=== PATIENT | male | born 1965 | race Caucasian/White ===

== ENCOUNTER 2017-09-25 00:45 | Inpatient (IN) | payer MEDICARE, OTHER ==
[2017-09-25 01:12] LABS: ADD MAN DIFF? NO
[2017-09-25 01:14] LABS: ABNORMAL IP MESSAGE 1; BASOPHILS % 0.3 % (0.0-2.0); EOSINOPHILS # 0.3 10^3/ul (0.0-0.5); EOSINOPHILS % 2.5 % (0.0-7.0); HEMATOCRIT 36.9 % (42.0-52.0); HEMOGLOBIN 11.3 g/dl (14.0-18.0); LYMPHOCYTES # 0.5 10^3/ul (0.8-2.9); LYMPHOCYTES % 3.8 % (15.0-51.0); MEAN CORPUSCULAR HEMOGLOBIN 32.8 pg (29.0-33.0); MEAN CORPUSCULAR HGB CONC 30.6 g/dl (32.0-37.0); MEAN CORPUSCULAR VOLUME 107.3 fl (82.0-101.0); MEAN PLATELET VOLUME 10.7 fl (7.4-10.4); MONOCYTE # 1.2 10^3/ul (0.3-0.9); NEUTROPHIL # 9.8 10^3/ul (1.6-7.5); NEUTROPHILS % 82.7 % (39.0-77.0); NUCLEATED RED BLOOD CELLS% 0.2 /100WBC (0.0-0.0); PLATELET COUNT 232 10^3/UL (140-415); POSITIVE DIFF @See below; RED BLOOD COUNT 3.44 10^6/ul (4.70-6.10); RED CELL DISTRIBUTION WIDTH 13.8 % (11.5-14.5)
[2017-09-25 01:14] LABS: WHITE BLOOD COUNT 11.8 10^3/ul (4.8-10.8)
[2017-09-25] MEDS: METHYLPREDNISOLONE 125 MG INJ IV ×2 (01:28→09:37)
[2017-09-25 01:31] LABS: ALANINE AMINOTRANSFERASE 25 IU/L (13-69); ALBUMIN 3.8 g/dl (3.3-4.9); ALBUMIN/GLOBULIN RATIO 1.02; ALKALINE PHOSPHATASE 68 IU/L (42-121); ASPARTATE AMINO TRANSFERASE 30 IU/L (15-46); BILIRUBIN,INDIRECT 0.5 mg/dl (0-1.1); BILIRUBIN,TOTAL 0.5 mg/dl (0.2-1.3); BLOOD UREA NITROGEN 22 mg/dl (7-20); CALCIUM 8.8 mg/dl (8.4-10.2); CHLORIDE 94 mmol/L (97-110); CREATININE 0.93 mg/dl (0.61-1.24); GLUCOSE 275 mg/dl (70-220); POTASSIUM 4.6 mmol/L (3.5-5.1); SODIUM 140 mmol/L (135-144); TOTAL PROTEIN 7.5 g/dl (6.1-8.1)
[2017-09-25 01:32] LABS: LACTIC ACID 1.5 mmol/L (0.5-2.0)
[2017-09-25] MEDS: IPRATROPIUM (NEB) 0.5 MG/2.5 ML AMP INH (01:32)
[2017-09-25] MEDS: LEVALBUTEROL (NEB) 1.25 MG/0.5 ML AMP INH (01:32)
[2017-09-25 01:33] LABS: INR 0.98; PARTIAL THROMBOPLASTIN TIME 27.5 Sec (25.0-35.0); PROTIME 13.1 Sec (11.9-14.9)
[2017-09-25 01:37] LABS: ANION GAP 11 (8-16)
[2017-09-25 01:41] LABS: CARBON DIOXIDE 40 mmol/L (21-31)
[2017-09-25 01:42] LABS: TROPONIN-I 0.031 ng/ml (0.000-0.120)
[2017-09-25] MEDS: SOD CHLORIDE 0.9% IV (03:13)
[2017-09-25 03:23] LABS: AADO2 Arterial 314.7 mmHg (7.0-24.0); Allen Test ACCEPTAB; Arterial Base Excess 12.3 mmol/L (-3.0-3); Arterial Blood Gas Oxygen Sat 93.8 mmHG (95.0-98.0); Arterial COHb 0.5 % (0.0-3.0); Arterial Fraction of Oxyhgb 93.1 % (93.0-99.0); Arterial HCO3 43.1 mmol/L (22.0-26.0); Arterial MetHb 0.2 % (0.0-1.5); Arterial Total Hemglobin 12.5 g/dl (12.0-18.0); Arterial pCO2 96.9 mmhg (35-45); Blood Gas IEPAP 18/8; Blood Gas PS 10; MODE MASK - BIPAP
[2017-09-25] MEDS: CEFEPIME 1GM/50 ML (PMX) 50 ML IVPB (03:24)
[2017-09-25] MEDS: VANCOMYCIN 1 GM (PMX) 250 ML IVPB (03:24)
[2017-09-25 03:44] LABS: LACTIC ACID 0.7 mmol/L (0.5-2.0)
[2017-09-25] MEDS ORDERED: ONDANSETRON 4 MG INJ IV (06:00)
[2017-09-25] MEDS ORDERED: IPRATROPIUM (NEB) 0.5 MG/2.5 ML AMP NEB (06:00)
[2017-09-25 06:08] LABS: LACTIC ACID 0.6 mmol/L (0.5-2.0)
[2017-09-25] MEDS ORDERED: DEXTROSE 50% 50 ML SYRINGE IV ×2 (07:30)
[2017-09-25] MEDS ORDERED: GLUCOSE GEL 15 GRAM TUBE PO ×2 (07:30)
[2017-09-25] MEDS ORDERED: GLUCAGON 1 MG INJ IM (07:30)
[2017-09-25] MEDS ORDERED: GLUCOSE GEL 15 GRAM TUBE BUCCAL (07:30)
[2017-09-25] MEDS: CEFTRIAXONE 1 GM/50 ML (PMX) 50 ML IVPB ×2 (08:03→20:27)
[2017-09-25 08:23] LABS: AADO2 Arterial 361.6 mmHg (7.0-24.0); Arterial Base Excess 7.5 mmol/L (-3.0-3); Arterial Blood Gas Oxygen Sat 95.6 mmHG (95.0-98.0); Arterial COHb 0.7 % (0.0-3.0); Arterial Fraction of Oxyhgb 94.9 % (93.0-99.0); Arterial HCO3 39.4 mmol/L (22.0-26.0); Arterial MetHb 0 % (0.0-1.5); Arterial Total Hemglobin 12.8 g/dl (12.0-18.0); Arterial pCO2 105.8 mmhg (35-45); Blood Gas IEPAP 18/8; Blood Gas PS 10; MODE MASK - BIPAP; Site Right Brachial
[2017-09-25] MEDS: FUROSEMIDE 40 MG INJ IV (09:37)
[2017-09-25] MEDS: INSULIN ASPART [NOVOLOG] 3 ML PEN SC ×4 (09:44→20:36)
[2017-09-25] MEDS: INSULIN DETEMIR [LEVEMIR] (100 UNITS/ML) SYG SC (09:44)
[2017-09-25] MEDS: HEPARIN 5,000 UNIT/0.5 ML VIAL SC ×2 (09:45→20:30)
[2017-09-25] MEDS: AZITHROMYCIN 500MG/NS (PMX) 250 ML IVPB (10:25)
[2017-09-25 10:45] LABS: AADO2 Arterial 402.9 mmHg (7.0-24.0); Arterial Base Excess 8.5 mmol/L (-3.0-3); Arterial Blood Gas Oxygen Sat 92.8 mmHG (95.0-98.0); Arterial COHb 0.4 % (0.0-3.0); Arterial Fraction of Oxyhgb 92.3 % (93.0-99.0); Arterial HCO3 38.8 mmol/L (22.0-26.0); Arterial MetHb 0.1 % (0.0-1.5); Arterial Total Hemglobin 12.5 g/dl (12.0-18.0); Arterial pCO2 89.2 mmhg (35-45); Blood Gas IEPAP 24/8; Blood Gas PS 16; MODE MASK - BIPAP; Site Right Brachial
[2017-09-26] MEDS: INSULIN ASPART [NOVOLOG] 3 ML PEN SC ×6 (01:00→21:48)
[2017-09-26] MEDS ORDERED: ACCU-CHEK XX (02:00)
[2017-09-26] MEDS: FUROSEMIDE 40 MG INJ IV (05:45)
[2017-09-26 08:58] LABS: AADO2 Arterial 178.7 mmHg (7.0-24.0); Allen Test ACCEPTAB; Arterial Base Excess 15.5 mmol/L (-3.0-3); Arterial Blood Gas Oxygen Sat 95.4 mmHG (95.0-98.0); Arterial COHb 0.2 % (0.0-3.0); Arterial Fraction of Oxyhgb 95.1 % (93.0-99.0); Arterial HCO3 44.9 mmol/L (22.0-26.0); Arterial MetHb 0.1 % (0.0-1.5); Arterial pCO2 85.2 mmhg (35-45); Blood Gas IEPAP 16; Blood Gas PS 24/8; MODE MASK - BIPAP; Site Right Radial
[2017-09-26] MEDS: CEFTRIAXONE 1 GM/50 ML (PMX) 50 ML IVPB ×2 (09:42→21:46)
[2017-09-26] MEDS: HEPARIN 5,000 UNIT/0.5 ML VIAL SC ×2 (09:43→21:47)
[2017-09-26] MEDS: INSULIN DETEMIR [LEVEMIR] (100 UNITS/ML) SYG SC (09:52)
[2017-09-26] MEDS: AZITHROMYCIN 500MG/NS (PMX) 250 ML IVPB (11:06)
[2017-09-26] MEDS: METHYLPREDNISOLONE 125 MG INJ IV ×2 (12:41→18:11)
[2017-09-26] MEDS: DEXTROSE 5%-0.45% NACL 1,000 ML IV (13:42)
[2017-09-27] MEDS: INSULIN ASPART [NOVOLOG] 3 ML PEN SC ×6 (01:41→21:09)
[2017-09-27 05:25] LABS: ADD MAN DIFF? NO
[2017-09-27 05:32] LABS: ABNORMAL IP MESSAGE 1; BASOPHILS % 0.1 % (0.0-2.0); HEMATOCRIT 33.4 % (42.0-52.0); HEMOGLOBIN 10.5 g/dl (14.0-18.0); LYMPHOCYTES # 0.2 10^3/ul (0.8-2.9); LYMPHOCYTES % 1.2 % (15.0-51.0); MEAN CORPUSCULAR HEMOGLOBIN 33.3 pg (29.0-33.0); MEAN CORPUSCULAR HGB CONC 31.4 g/dl (32.0-37.0); MEAN PLATELET VOLUME 11.5 fl (7.4-10.4); MONOCYTE # 0.2 10^3/ul (0.3-0.9); MONOCYTES % 1.7 % (0.0-11.0); NEUTROPHIL # 12.9 10^3/ul (1.6-7.5); NEUTROPHILS % 96.4 % (39.0-77.0); PLATELET COUNT 259 10^3/UL (140-415); POSITIVE DIFF @See below; RED BLOOD COUNT 3.15 10^6/ul (4.70-6.10); RED CELL DISTRIBUTION WIDTH 14.6 % (11.5-14.5)
[2017-09-27 05:32] LABS: WHITE BLOOD COUNT 13.4 10^3/ul (4.8-10.8)
[2017-09-27] MEDS: METHYLPREDNISOLONE 125 MG INJ IV ×4 (06:10→17:37)
[2017-09-27] MEDS: FUROSEMIDE 40 MG INJ IV (06:10)
[2017-09-27 06:22] LABS: BLOOD UREA NITROGEN 30 mg/dl (7-20); CHLORIDE 94 mmol/L (97-110); CREATININE 0.79 mg/dl (0.61-1.24); GLUCOSE 189 mg/dl (70-220); MAGNESIUM 2.4 mg/dl (1.7-2.5); POTASSIUM 4.7 mmol/L (3.5-5.1); SODIUM 143 mmol/L (135-144)
[2017-09-27 06:39] LABS: ANION GAP 8 (8-16)
[2017-09-27 06:40] LABS: CARBON DIOXIDE 46 mmol/L (21-31)
[2017-09-27] MEDS: AZITHROMYCIN 500MG/NS (PMX) 250 ML IVPB ×2 (09:00→10:02)
[2017-09-27 09:36] LABS: AADO2 Arterial 236.9 mmHg (7.0-24.0); Allen Test ACCEPTAB; Arterial Base Excess 18.2 mmol/L (-3.0-3); Arterial Blood Gas Oxygen Sat 96.9 mmHG (95.0-98.0); Arterial COHb 0.3 % (0.0-3.0); Arterial Fraction of Oxyhgb 96.4 % (93.0-99.0); Arterial HCO3 47.6 mmol/L (22.0-26.0); Arterial MetHb 0.2 % (0.0-1.5); Arterial Total Hemglobin 12.3 g/dl (12.0-18.0); Arterial pCO2 84.4 mmhg (35-45); Blood Gas IEPAP 24/8; Blood Gas PS 16; MODE MASK - BIPAP; Site Right Radial
[2017-09-27] MEDS: HEPARIN 5,000 UNIT/0.5 ML VIAL SC ×2 (09:56→21:09)
[2017-09-27] MEDS: INSULIN DETEMIR [LEVEMIR] (100 UNITS/ML) SYG SC (09:58)
[2017-09-27] MEDS: DEXTROSE 5%-0.45% NACL 1,000 ML IV (10:01)
[2017-09-27] MEDS: CEFTRIAXONE 1 GM/50 ML (PMX) 50 ML IVPB ×2 (10:02→21:06)
[2017-09-27] MEDS: SOD CHLORIDE 0.9% 1,000 ML IV (18:19)
[2017-09-28] MEDS: METHYLPREDNISOLONE 125 MG INJ IV ×4 (00:08→17:25)
[2017-09-28] MEDS: INSULIN ASPART [NOVOLOG] 3 ML PEN SC ×6 (01:04→20:33)
[2017-09-28 05:12] LABS: ADD MAN DIFF? NO
[2017-09-28 05:21] LABS: ABNORMAL IP MESSAGE 1; BASOPHILS % 0.1 % (0.0-2.0); HEMATOCRIT 32.7 % (42.0-52.0); HEMOGLOBIN 10.3 g/dl (14.0-18.0); LYMPHOCYTES # 0.1 10^3/ul (0.8-2.9); LYMPHOCYTES % 0.8 % (15.0-51.0); MEAN CORPUSCULAR HEMOGLOBIN 33.1 pg (29.0-33.0); MEAN CORPUSCULAR HGB CONC 31.5 g/dl (32.0-37.0); MEAN CORPUSCULAR VOLUME 105.1 fl (82.0-101.0); MEAN PLATELET VOLUME 11.2 fl (7.4-10.4); MONOCYTE # 0.3 10^3/ul (0.3-0.9); MONOCYTES % 2.2 % (0.0-11.0); NEUTROPHIL # 13.2 10^3/ul (1.6-7.5); NEUTROPHILS % 96.4 % (39.0-77.0); PLATELET COUNT 237 10^3/UL (140-415); POSITIVE DIFF @See below; RED BLOOD COUNT 3.11 10^6/ul (4.70-6.10); RED CELL DISTRIBUTION WIDTH 14.7 % (11.5-14.5)
[2017-09-28 05:21] LABS: WHITE BLOOD COUNT 13.7 10^3/ul (4.8-10.8)
[2017-09-28] MEDS: PANTOPRAZOLE 40 MG INJ IV (05:46)
[2017-09-28 05:57] LABS: BLOOD UREA NITROGEN 31 mg/dl (7-20); CALCIUM 8.8 mg/dl (8.4-10.2); CHLORIDE 97 mmol/L (97-110); CREATININE 0.74 mg/dl (0.61-1.24); GLUCOSE 174 mg/dl (70-220); MAGNESIUM 2.5 mg/dl (1.7-2.5); PHOSPHORUS 4.6 mg/dl (2.5-4.9); POTASSIUM 4.3 mmol/L (3.5-5.1); SODIUM 144 mmol/L (135-144)
[2017-09-28] MEDS: FUROSEMIDE 40 MG INJ IV (06:05)
[2017-09-28 06:08] LABS: ANION GAP 8 (8-16)
[2017-09-28 06:32] LABS: CARBON DIOXIDE 43 mmol/L (21-31)
[2017-09-28] MEDS: CEFTRIAXONE 1 GM/50 ML (PMX) 50 ML IVPB ×2 (08:19→20:30)
[2017-09-28 08:23] LABS: AADO2 Arterial 220.3 mmHg (7.0-24.0); Allen Test ACCEPTAB; Arterial Base Excess 15.3 mmol/L (-3.0-3); Arterial Blood Gas Oxygen Sat 89.1 mmHG (95.0-98.0); Arterial COHb 0.2 % (0.0-3.0); Arterial Fraction of Oxyhgb 88.7 % (93.0-99.0); Arterial HCO3 42.6 mmol/L (22.0-26.0); Arterial MetHb 0.3 % (0.0-1.5); Arterial pCO2 66.9 mmhg (35-45); Blood Gas IEPAP 24/8; Blood Gas PS 16; MODE MASK - BIPAP; Site Right Radial
[2017-09-28] MEDS: HEPARIN 5,000 UNIT/0.5 ML VIAL SC ×2 (08:29→20:33)
[2017-09-28] MEDS: INSULIN DETEMIR [LEVEMIR] (100 UNITS/ML) SYG SC (09:07)
[2017-09-28] MEDS: AZITHROMYCIN 500MG/NS (PMX) 250 ML IVPB (12:27)
[2017-09-28] MEDS: SOD CHLORIDE 0.9% 1,000 ML IV (17:25)
[2017-09-29] MEDS: METHYLPREDNISOLONE 125 MG INJ IV ×5 (00:36→23:30)
[2017-09-29] MEDS: INSULIN ASPART [NOVOLOG] 3 ML PEN SC ×6 (01:03→20:24)
[2017-09-29] MEDS: PANTOPRAZOLE 40 MG INJ IV (06:07)
[2017-09-29] MEDS: FUROSEMIDE 40 MG INJ IV (06:07)
[2017-09-29] MEDS: SOD CHLORIDE 0.9% 1,000 ML IV (06:08)
[2017-09-29 06:37] LABS: ADD MAN DIFF? NO
[2017-09-29 06:45] LABS: ABNORMAL IP MESSAGE 1; BASOPHILS % 0.1 % (0.0-2.0); HEMATOCRIT 34.5 % (42.0-52.0); HEMOGLOBIN 10.9 g/dl (14.0-18.0); LYMPHOCYTES # 0.1 10^3/ul (0.8-2.9); LYMPHOCYTES % 0.7 % (15.0-51.0); MEAN CORPUSCULAR HGB CONC 31.6 g/dl (32.0-37.0); MEAN CORPUSCULAR VOLUME 104.5 fl (82.0-101.0); MEAN PLATELET VOLUME 10.9 fl (7.4-10.4); MONOCYTE # 0.3 10^3/ul (0.3-0.9); MONOCYTES % 2.7 % (0.0-11.0); NEUTROPHIL # 10.6 10^3/ul (1.6-7.5); NEUTROPHILS % 95.9 % (39.0-77.0); PLATELET COUNT 232 10^3/UL (140-415); POSITIVE DIFF @See below; RED CELL DISTRIBUTION WIDTH 14.5 % (11.5-14.5)
[2017-09-29 07:18] LABS: BLOOD UREA NITROGEN 35 mg/dl (7-20); CALCIUM 8.7 mg/dl (8.4-10.2); CHLORIDE 97 mmol/L (97-110); CREATININE 0.81 mg/dl (0.61-1.24); GLUCOSE 152 mg/dl (70-220); MAGNESIUM 2.6 mg/dl (1.7-2.5); PHOSPHORUS 4.6 mg/dl (2.5-4.9); POTASSIUM 4.2 mmol/L (3.5-5.1); SODIUM 143 mmol/L (135-144)
[2017-09-29 07:48] LABS: ANION GAP 7 (8-16)
[2017-09-29 07:49] LABS: CARBON DIOXIDE 43 mmol/L (21-31)
[2017-09-29] MEDS: AZITHROMYCIN 500MG/NS (PMX) 250 ML IVPB (07:59)
[2017-09-29 08:01] LABS: AADO2 Arterial 206.8 mmHg (7.0-24.0); Allen Test ACCEPTAB; Arterial Base Excess 14.2 mmol/L (-3.0-3); Arterial Blood Gas Oxygen Sat 93.6 mmHG (95.0-98.0); Arterial COHb 0.3 % (0.0-3.0); Arterial Fraction of Oxyhgb 93.1 % (93.0-99.0); Arterial HCO3 41.7 mmol/L (22.0-26.0); Arterial MetHb 0.2 % (0.0-1.5); Arterial Total Hemglobin 12.7 g/dl (12.0-18.0); Arterial pCO2 66.4 mmhg (35-45); Blood Gas IEPAP 24/8; Blood Gas PS 16; MODE MASK - BIPAP; Site Right Radial
[2017-09-29] MEDS: HEPARIN 5,000 UNIT/0.5 ML VIAL SC ×2 (08:09→20:23)
[2017-09-29] MEDS: INSULIN DETEMIR [LEVEMIR] (100 UNITS/ML) SYG SC (08:10)
[2017-09-29] MEDS ORDERED: TPN 1,000 ML IV (09:35)
[2017-09-29] MEDS: CEFTRIAXONE 1 GM/50 ML (PMX) 50 ML IVPB ×2 (09:57→20:22)
[2017-09-29] MEDS: LIDOCAINE 1% (MPF) 5 ML VIAL SC (10:00)
[2017-09-29] MEDS: ACCU-CHEK XX (11:08)
[2017-09-29 12:22] LABS: ALANINE AMINOTRANSFERASE 21 IU/L (13-69); ALBUMIN 3.2 g/dl (3.3-4.9); ALBUMIN/GLOBULIN RATIO 0.94; ALKALINE PHOSPHATASE 44 IU/L (42-121); ASPARTATE AMINO TRANSFERASE 16 IU/L (15-46); BILIRUBIN,INDIRECT 0.3 mg/dl (0-1.1); BILIRUBIN,TOTAL 0.3 mg/dl (0.2-1.3); BLOOD UREA NITROGEN 34 mg/dl (7-20); CALCIUM 8.9 mg/dl (8.4-10.2); CHLORIDE 97 mmol/L (97-110); CREATININE 0.85 mg/dl (0.61-1.24); GLUCOSE 166 mg/dl (70-220); MAGNESIUM 2.5 mg/dl (1.7-2.5); PHOSPHORUS 4.3 mg/dl (2.5-4.9); POTASSIUM 3.9 mmol/L (3.5-5.1); SODIUM 143 mmol/L (135-144); TOTAL PROTEIN 6.6 g/dl (6.1-8.1); TRIGLYCERIDES 105 mg/dl (0-149)
[2017-09-29 12:29] LABS: PREALBUMIN 16.6 mg/dl (17.6-36.0)
[2017-09-29] MEDS: BUDESONIDE (NEB) 0.5MG/2ML AMP HHN ×2 (12:30→20:02)
[2017-09-29 12:34] LABS: ANION GAP 8 (8-16)
[2017-09-29 12:36] LABS: CARBON DIOXIDE 42 mmol/L (21-31)
[2017-09-29] MEDS: ALBUTEROL/IPRATROPIUM (NEB) 3 ML AMP HHN ×2 (14:00→20:02)
[2017-09-30] MEDS: INSULIN ASPART [NOVOLOG] 3 ML PEN SC ×9 (00:52→21:27)
[2017-09-30] MEDS: PANTOPRAZOLE 40 MG INJ IV (05:01)
[2017-09-30] MEDS: METHYLPREDNISOLONE 125 MG INJ IV (05:01)
[2017-09-30] MEDS: FUROSEMIDE 40 MG INJ IV (05:01)
[2017-09-30 05:28] LABS: ADD MAN DIFF? NO
[2017-09-30 05:46] LABS: ABNORMAL IP MESSAGE 1; BASOPHILS % 0.1 % (0.0-2.0); HEMATOCRIT 37.3 % (42.0-52.0); HEMOGLOBIN 11.6 g/dl (14.0-18.0); LYMPHOCYTES # 0.1 10^3/ul (0.8-2.9); LYMPHOCYTES % 0.8 % (15.0-51.0); MEAN CORPUSCULAR HEMOGLOBIN 32.1 pg (29.0-33.0); MEAN CORPUSCULAR HGB CONC 31.1 g/dl (32.0-37.0); MEAN CORPUSCULAR VOLUME 103.3 fl (82.0-101.0); MEAN PLATELET VOLUME 11.2 fl (7.4-10.4); MONOCYTE # 0.3 10^3/ul (0.3-0.9); NEUTROPHIL # 12.8 10^3/ul (1.6-7.5); NEUTROPHILS % 96.3 % (39.0-77.0); PLATELET COUNT 245 10^3/UL (140-415); POSITIVE DIFF @See below; RED BLOOD COUNT 3.61 10^6/ul (4.70-6.10); RED CELL DISTRIBUTION WIDTH 14.3 % (11.5-14.5)
[2017-09-30 05:46] LABS: WHITE BLOOD COUNT 13.3 10^3/ul (4.8-10.8)
[2017-09-30 06:25] LABS: BLOOD UREA NITROGEN 30 mg/dl (7-20); CALCIUM 8.6 mg/dl (8.4-10.2); CHLORIDE 97 mmol/L (97-110); CREATININE 0.73 mg/dl (0.61-1.24); GLUCOSE 189 mg/dl (70-220); MAGNESIUM 2.6 mg/dl (1.7-2.5); PHOSPHORUS 4.1 mg/dl (2.5-4.9); POTASSIUM 4.5 mmol/L (3.5-5.1); SODIUM 141 mmol/L (135-144)
[2017-09-30 06:48] LABS: ANION GAP 6 (8-16); CARBON DIOXIDE 43 mmol/L (21-31)
[2017-09-30] MEDS: AZITHROMYCIN 500MG/NS (PMX) 250 ML IVPB (08:02)
[2017-09-30] MEDS: ALBUTEROL/IPRATROPIUM (NEB) 3 ML AMP HHN ×3 (08:20→20:37)
[2017-09-30] MEDS: BUDESONIDE (NEB) 0.5MG/2ML AMP HHN ×2 (08:20→20:37)
[2017-09-30] MEDS: HEPARIN 5,000 UNIT/0.5 ML VIAL SC ×2 (08:56→21:21)
[2017-09-30] MEDS: INSULIN DETEMIR [LEVEMIR] (100 UNITS/ML) SYG SC (08:56)
[2017-09-30 09:25] LABS: AADO2 Arterial 358.1 mmHg (7.0-24.0); Allen Test ACCEPTAB; Arterial Base Excess 13.6 mmol/L (-3.0-3); Arterial Blood Gas Oxygen Sat 92.5 mmHG (95.0-98.0); Arterial COHb 0.1 % (0.0-3.0); Arterial Fraction of Oxyhgb 92.1 % (93.0-99.0); Arterial HCO3 41.3 mmol/L (22.0-26.0); Arterial MetHb 0.3 % (0.0-1.5); Arterial pCO2 67.3 mmhg (35-45); MODE HFNC; Site Right Radial
[2017-09-30] MEDS: DOCUSATE SODIUM 100 MG CAP PO ×2 (10:00→21:00)
[2017-09-30] MEDS: METHYLPREDNISOLONE 40 MG INJ IV ×3 (12:15→23:39)
[2017-10-01] MEDS: ACCU-CHEK XX (01:16)
[2017-10-01] MEDS: PANTOPRAZOLE (EC) 40 MG TAB PO (05:30)
[2017-10-01] MEDS: METHYLPREDNISOLONE 40 MG INJ IV ×3 (05:30→18:37)
[2017-10-01] MEDS: FUROSEMIDE 40 MG INJ IV (05:31)
[2017-10-01] MEDS: INSULIN ASPART [NOVOLOG] 3 ML PEN SC ×7 (07:38→20:59)
[2017-10-01] MEDS: INSULIN DETEMIR [LEVEMIR] (100 UNITS/ML) SYG SC (07:45)
[2017-10-01] MEDS: ALBUTEROL/IPRATROPIUM (NEB) 3 ML AMP HHN ×3 (07:51→20:08)
[2017-10-01 09:02] LABS: ADD MAN DIFF? NO
[2017-10-01 09:07] LABS: ABNORMAL IP MESSAGE 1; BASOPHILS % 0.1 % (0.0-2.0); HEMATOCRIT 39.1 % (42.0-52.0); HEMOGLOBIN 12.2 g/dl (14.0-18.0); LYMPHOCYTES # 0.1 10^3/ul (0.8-2.9); LYMPHOCYTES % 0.6 % (15.0-51.0); MEAN CORPUSCULAR HEMOGLOBIN 32.1 pg (29.0-33.0); MEAN CORPUSCULAR HGB CONC 31.2 g/dl (32.0-37.0); MEAN CORPUSCULAR VOLUME 102.9 fl (82.0-101.0); MONOCYTE # 0.4 10^3/ul (0.3-0.9); MONOCYTES % 2.9 % (0.0-11.0); NEUTROPHIL # 13.4 10^3/ul (1.6-7.5); NEUTROPHILS % 95.9 % (39.0-77.0); PLATELET COUNT 247 10^3/UL (140-415); POSITIVE DIFF @See below; RED CELL DISTRIBUTION WIDTH 14.4 % (11.5-14.5)
[2017-10-01] MEDS: BUDESONIDE (NEB) 0.5MG/2ML AMP HHN ×2 (09:10→20:08)
[2017-10-01] MEDS: DOCUSATE SODIUM 100 MG CAP PO ×2 (09:23→21:00)
[2017-10-01] MEDS: HEPARIN 5,000 UNIT/0.5 ML VIAL SC ×2 (09:28→20:59)
[2017-10-01 09:46] LABS: BLOOD UREA NITROGEN 33 mg/dl (7-20); CALCIUM 8.6 mg/dl (8.4-10.2); CHLORIDE 94 mmol/L (97-110); CREATININE 0.69 mg/dl (0.61-1.24); GLUCOSE 227 mg/dl (70-220); MAGNESIUM 2.5 mg/dl (1.7-2.5); PHOSPHORUS 3.7 mg/dl (2.5-4.9); POTASSIUM 4.5 mmol/L (3.5-5.1); SODIUM 139 mmol/L (135-144)
[2017-10-01 10:03] LABS: ANION GAP 9 (8-16); CARBON DIOXIDE 41 mmol/L (21-31)
[2017-10-01] MEDS: INSULIN GLARGINE [LANTus] (100 UNITS/ML) SYG SC (21:00)
[2017-10-02] MEDS: METHYLPREDNISOLONE 40 MG INJ IV ×2 (00:14→06:08)
[2017-10-02] MEDS: ACCU-CHEK XX (01:31)
[2017-10-02] MEDS: FUROSEMIDE 40 MG INJ IV (06:08)
[2017-10-02] MEDS: PANTOPRAZOLE (EC) 40 MG TAB PO (06:08)
[2017-10-02] MEDS: ALBUTEROL/IPRATROPIUM (NEB) 3 ML AMP HHN ×3 (07:26→20:16)
[2017-10-02] MEDS: INSULIN ASPART [NOVOLOG] 3 ML PEN SC ×7 (08:08→21:00)
[2017-10-02] MEDS: DOCUSATE SODIUM 100 MG CAP PO ×2 (09:13→21:00)
[2017-10-02] MEDS: HEPARIN 5,000 UNIT/0.5 ML VIAL SC ×2 (09:34→22:24)
[2017-10-02] MEDS: BUDESONIDE (NEB) 0.5MG/2ML AMP HHN ×2 (09:50→20:16)
[2017-10-02] MEDS: FUROSEMIDE 20 MG TAB PO (18:29)
[2017-10-02] MEDS: INSULIN GLARGINE [LANTus] (100 UNITS/ML) SYG SC (22:24)
[2017-10-03] MEDS: ACCU-CHEK XX (01:39)
[2017-10-03] MEDS: PANTOPRAZOLE (EC) 40 MG TAB PO (06:05)
[2017-10-03] MEDS: FUROSEMIDE 20 MG TAB PO ×2 (06:06→17:50)
[2017-10-03] MEDS: ALBUTEROL/IPRATROPIUM (NEB) 3 ML AMP HHN ×3 (07:43→20:32)
[2017-10-03] MEDS: BUDESONIDE (NEB) 0.5MG/2ML AMP HHN ×2 (07:43→20:33)
[2017-10-03] MEDS: INSULIN ASPART [NOVOLOG] 3 ML PEN SC ×7 (07:53→20:38)
[2017-10-03] MEDS: predniSONE 20 MG TAB PO (08:16)
[2017-10-03] MEDS: DOCUSATE SODIUM 100 MG CAP PO ×2 (08:17→20:35)
[2017-10-03 08:18] LABS: ADD MAN DIFF? NO
[2017-10-03] MEDS: HEPARIN 5,000 UNIT/0.5 ML VIAL SC ×2 (08:20→20:37)
[2017-10-03 08:21] LABS: WHITE BLOOD COUNT 11.3 10^3/ul (4.8-10.8)
[2017-10-03 08:21] LABS: BASOPHILS % 0.1 % (0.0-2.0); EOSINOPHILS # 0.4 10^3/ul (0.0-0.5); EOSINOPHILS % 3.4 % (0.0-7.0); HEMATOCRIT 40.4 % (42.0-52.0); HEMOGLOBIN 12.7 g/dl (14.0-18.0); LYMPHOCYTES % 9.1 % (15.0-51.0); MEAN CORPUSCULAR HGB CONC 31.4 g/dl (32.0-37.0); MEAN CORPUSCULAR VOLUME 101.8 fl (82.0-101.0); MEAN PLATELET VOLUME 11.6 fl (7.4-10.4); MONOCYTE # 0.9 10^3/ul (0.3-0.9); MONOCYTES % 7.6 % (0.0-11.0); NEUTROPHIL # 8.9 10^3/ul (1.6-7.5); PLATELET COUNT 217 10^3/UL (140-415); RED BLOOD COUNT 3.97 10^6/ul (4.70-6.10); RED CELL DISTRIBUTION WIDTH 14.4 % (11.5-14.5)
[2017-10-03 08:40] LABS: BLOOD UREA NITROGEN 29 mg/dl (7-20); CALCIUM 8.3 mg/dl (8.4-10.2); CHLORIDE 92 mmol/L (97-110); GLUCOSE 91 mg/dl (70-220); MAGNESIUM 2.2 mg/dl (1.7-2.5); PHOSPHORUS 3.1 mg/dl (2.5-4.9); POTASSIUM 4.3 mmol/L (3.5-5.1); SODIUM 138 mmol/L (135-144)
[2017-10-03 08:48] LABS: ANION GAP 6 (8-16); CARBON DIOXIDE 44 mmol/L (21-31)
[2017-10-03] MEDS: LEVOTHYROXINE 125 MCG TAB PO (11:00)
[2017-10-03] MEDS: CLOPIDOGREL 75 MG TAB PO (11:37)
[2017-10-03] MEDS: ASPIRIN 81 MG TAB PO (11:37)
[2017-10-03] MEDS: ATORVASTATIN 80 MG TAB PO (20:35)
[2017-10-03] MEDS: INSULIN GLARGINE [LANTus] (100 UNITS/ML) SYG SC (20:36)
== END 2017-10-03 21:45 | DRG 196 ==
LOC: ICU 09-27 16:47 → TEL 09-30 23:10 → E/R 00:45 → ICU 03:59
PROC: 5A09557 Assistance with Respiratory Ventilation, Greater than 96 Consecutive Hours, Continuous Positive Airway Pressure (ICD-10-PCS; principal; 2017-09-25)
DX: J84.10 Pulmonary fibrosis, unspecified (principal); J96.22 Acute and chronic respiratory failure with hypercapnia; J96.21 Acute and chronic respiratory failure with hypoxia; J18.9 Pneumonia, unspecified organism; I10 Essential (primary) hypertension; E11.9 Type 2 diabetes mellitus without complications; E78.5 Hyperlipidemia, unspecified; N40.0 Benign prostatic hyperplasia without lower urinary tract symptoms; E03.9 Hypothyroidism, unspecified; G47.33 Obstructive sleep apnea (adult) (pediatric); E66.01 Morbid (severe) obesity due to excess calories; Z68.36 Body mass index [BMI] 36.0-36.9, adult; D64.9 Anemia, unspecified; Z79.84 Long term (current) use of oral hypoglycemic drugs; Z79.82 Long term (current) use of aspirin; Z79.4 Long term (current) use of insulin
CPT/HCPCS: 36415; 36600; 71045; 80048; 80053; 82803; 82962; 83605; 83735; 84100; 84134; 84478; 84484; 85025; 85610; 85730; 87040; 87081; 93005; 94640; 94644; 94660; 94664; 96365; 96368; 96375; 99291-25